=== PATIENT | female | born 1980 | race Caucasian/White ===

== ENCOUNTER 2020-04-20 11:21 | Emergency (ER) | payer OTHER ==
[~2020-04-20] VITALS: Ht 154.9 cm; Wt 102.5 kg
[2020-04-20 11:37] VITALS: Ht 154.9 cm; Wt 102.5 kg
[2020-04-20 12:17] VITALS: BP 128/78
== END 2020-04-20 12:17 | disposition home or self-care (01) ==
LOC: ED 11:21
DX: L97.929 Non-pressure chronic ulcer of unspecified part of left lower leg with unspecified severity (principal); F17.210 Nicotine dependence, cigarettes, uncomplicated; Z88.0 Allergy status to penicillin
CPT/HCPCS: 90715; 99406